=== PATIENT | female | born 1980 | race Asian ===

== ENCOUNTER → 2021-02-26 | Outpatient (CLI) | payer OTHER ==
[2021-02-28 19:06] LABS: QUANTIFERON, TB GOLD PLUS Negative (Negative)
== END | disposition home or self-care (01) ==
LOC: LABPV 09:08
PROVIDERS: ATTEND Internal Medicine
DX: Z02.6 Encounter for examination for insurance purposes (principal)
CPT/HCPCS: 86480; 86592; 87491; 87591